=== PATIENT | female | born 1955 | race Caucasian/White ===

== ENCOUNTER 2021-04-23 02:52 | Emergency (ER) | payer BC ==
[~2021-04-23] VITALS: Ht 172.7 cm; Wt 90.0 kg
--- NOTE | 2021-04-23 02:56 | PHYS DOC ---
Adult General HPI HPI Patient is a 65-year-old female who presents with lightheadedness and some diarrhea. States that she think she ate some bad sauerkraut yesterday and woke up early this morning had 3 bouts of nonbloody watery diarrhea. States that just before coming to the emergency department she had her last bout of watery diarrhea, stood up professing got to the door and got lightheaded and had to sit down. Denies loss of consciousness, head injury, chest pain, shortness of breath, abdominal pain, nausea, vomiting. States she sat there for a few minutes and then was able to get up with the help of her . Denies any other recent travels, illnesses, fevers. Denies any alcohol drug use. Review of Systems Review of Systems Review of systems otherwise unremarkable except noted in HPI Physical Exam Physical Exam Constitutional: Well developed, well nourished, no acute distress, non-toxic appearance. [] HENT: Normocephalic, atraumatic, bilateral external ears normal, oropharynx moist, no oral exudates, nose normal. [] Eyes: PERRLA, EOMI, conjunctiva normal, no discharge. [] Neck: Normal range of motion, no tenderness, supple, no stridor. [] Cardiovascular:Heart rate regular rhythm, no murmur [] Lungs & Thorax: Bilateral breath sounds clear to auscultation [] Abdomen: Bowel sounds normal, soft, no tenderness, no masses, no pulsatile masses. [] Skin: Warm, dry, no erythema, no rash. [] Back: No tenderness, Extremities: No tenderness, no cyanosis, no clubbing, ROM intact, no edema. [] Neurologic: Alert and oriented X 3, normal motor function, normal sensory function, able to sit, stand and walk without issue, no focal deficits noted. [] Psychologic: Affect normal, judgement normal, mood normal. [] EKG EKG [] Radiology/Procedures Radiology/Procedures [] Heart Score C/O Chest Pain: No Risk Factors: Risk Factors: DM, Current or recent (<one month) smoker, HTN, HLP, family history of CAD, obesity. Risk Scores: Risk Factors: DM, Current or recent (<one month) smoker, HTN, HLP, family history of CAD, obesity. Course & Med Decision Making Course & Med Decision Making Patient is a 65-year-old female who presents with syncope Vital signs notable for sinus tachycardia which resolved in the ED. Physical exam noted above. EKG with a rate of 95, QRS of 70, QTc of 516, no STEMI Laboratory analysis notable for mild leukocytosis. Imaging unremarkable. Patient given IV fluid. On reassessment patient feeling better was asymptomatic and stated she was ready to go on home. Discussed all findings with patient. Advised on a light clear diet and plenty of fluids over the next couple of days. Advised to follow-up in the morning with primary care physician. Covid swab pending. Gave Covid education and quarantine information. Family grateful, verbalized understanding agree with plan of discharge. Gave strict return precautions to the ED. [] Dragon Disclaimer Dragon Disclaimer This electronic medical record was generated, in whole or in part, using a voice recognition dictation system. Departure Departure: Impression: Primary Impression: Dizziness Additional Impression: Diarrhea Disposition: HOME / SELF CARE / HOMELESS Condition: GOOD Referrals: LADONNA ALFARO MD Patient Instructions: Diarrhea, Dizziness Additional Instructions: Thank you for coming into the emergency department tonight and allowing us to take care of you. Please read the attached information carefully to go back over some of the things we discussed. Please eat a light clear diet over the next couple of days as we discussed until you are feeling better. Please take your nausea medicine as prescribed. Please follow-up in the morning with your [facility] physician to update on ED visit and set up a follow-up. Please come back please come back to the emergency department immediately with new or concerning symptoms as discussed. Problem Qualifiers CAMILA HOYOS MD Apr 23, 2021 02:56
[2021-04-23] MEDS ORDERED: ONDANSETRON PF 4 MG/2 ML VIAL. IVP ONE (03:00)
[2021-04-23] MEDS ORDERED: IV RINGERS SOLUTION,LACTATED 1,000 ML IV ONE (03:00)
--- NOTE | 2021-04-23 03:34 | EKG ---
[address] [address] Test Date: 2021-04-23 Test Time: 03:18:49 Pat Name: REGIS TAPIA Department: Room: Gender: F Soap Mixer: MIA : 1955 Requested By: CAMILA HOYOS Order Number: [id number] Reading MD: Xavi Larson Measurements Intervals [place] Rate: 95 P: -54 UT: 198 QRS: -13 QRSD: 70 T: 25 QT: 408 QTc: 516 Interpretive Statements SINUS RHYTHM LEFTWARD AXIS PROLONGED QT Electronically Signed On 04-24-2021 15:42:05 [employer]OUL[employer]ER by Xavi Larson
[2021-04-23 04:06] LABS: BASO % 0 % (0-3); EOS # 0.2 x10^3/uL (0.0-0.7); EOS % 1 % (0-3); HEMATOCRIT 42.6 % (36.0-47.0); HEMOGLOBIN 14.1 g/dL (12.0-15.5); LYMPH # 0.8 x10^3/uL (1.0-4.8); LYMPH % 6 % (24-48); MEAN CORPUSCULAR HEMOGLOBIN 31 pg (25-35); MEAN CORPUSCULAR HGB CONC 33 g/dL (31-37); MEAN CORPUSCULAR VOLUME 93 fL (79-100); MONO # 1.3 x10^3/uL (0.0-1.1); MONO % 10 % (0-9); NEUT # 10.5 x10^3uL (1.8-7.7); NEUT % 82 % (31-73); PLATELET COUNT 288 x10^3/uL (140-400); RED BLOOD COUNT 4.56 x10^6/uL (3.50-5.40); RED CELL DISTRIBUTION WIDTH 12.5 % (11.5-14.5); WHITE BLOOD COUNT 12.7 x10^3/uL (4.0-11.0)
[2021-04-23 04:15] LABS: CALCIUM 8.6 mg/dL (8.5-10.1); CREATININE 1.1 mg/dL (0.6-1.0); GFR 50.2; POTASSIUM 3.7 mmol/L (3.5-5.1)
[2021-04-23 04:20] LABS: ALBUMIN 4.2 g/dL (3.4-5.0); ALBUMIN/GLOBULIN RATIO 1.3 (1.0-1.7); MAGNESIUM 2.4 mg/dL (1.8-2.4); TOTAL BILIRUBIN 0.5 mg/dL (0.2-1.0); TOTAL PROTEIN 7.5 g/dL (6.4-8.2)
[2021-04-23 05:00] VITALS: BP 121/66
[2021-04-23 05:47] LABS: BACTERIA,URINE FEW /HPF (0-FEW); BILIRUBIN,URINE NEG (NEG); CLARITY,URINE CLEAR; COLOR,URINE YELLOW; GLUCOSE,URINE NEG (NEG); NITRITE,URINE NEG (NEG); SQUAMOUS EPITHELIAL CELL,UR FEW /LPF
--- NOTE | 2021-04-23 06:05 | RAD ---
XR CHEST 1V INDICATION: Reason: Chest pain, cardiac w/u / Spl. Instructions: / History: . COMPARISON STUDY: None. FINDINGS: Lungs: Normal lung volume. No pulmonary mass or consolidation. The tracheobronchial tree and hilar st ructures are normal. Pleura: No pleural effusion or pneumothorax. Heart and Mediastinum: The cardiomediastinal silhouette is normal. The great vessels of the thorax ar e normal. IMPRESSION: No consolidation. Electronically signed by: Martin Paz MD (04/23/2021 6:03 AM) [facility]
[2021-04-23] MEDS ORDERED: ONDANSETRON 4MG ODT 4TABLET STARTPACK. PO ONE (07:00)
== END 2021-04-23 06:42 | disposition home or self-care (01) ==
LOC: ER 02:52
DX: R42 Dizziness and giddiness (principal); R19.7 Diarrhea, unspecified
CPT/HCPCS: 36415; 71045; 80053; 81001; 83735; 84484; 85025; 87086; 93005; 96361; 96374; 99285; J2405; J7120; Q0162